=== PATIENT | female | born 1990 ===

== ENCOUNTER 2022-02-10 14:46 | Emergency (ER) | payer MEDICAID ==
[2022-02-10] MEDS ORDERED: ACETAMINOPHEN 325 MG TAB PO ONE (17:11)
[2022-02-10 18:00] LABS: Basophils % (Auto) 0.3 % (0.0-1.8); Eosinophils % (Auto) 0.4 % (0.0-4.3); Hematocrit 37.9 % (30.3-42.9); Hemoglobin 12.6 gm/dl (10.1-14.3); Lymphocytes # (Auto) 1.7 K/mm3 (1.2-5.4); Lymphocytes % (Auto) 15.5 % (13.4-35.0); Mean Corpuscular HGB Conc 33 % (30-34); Mean Corpuscular Volume 88 fl (79-97); Monocytes # (Auto) 0.7 K/mm3 (0.0-0.8); Monocytes % (Auto) 5.9 % (0.0-7.3); Platelet Count 223 K/mm3 (140-440)
[2022-02-10 18:20] LABS: Alanine Aminotransferase 15 units/L (7-56); Albumin 4.1 g/dL (3.9-5); Blood Urea Nitrogen 7 mg/dL (7-17); Calcium 8.7 mg/dL (8.4-10.2); Hemolysis Index 11
[2022-02-10 18:26] LABS: BUN/Creatinine Ratio 18
[2022-02-10 19:33] LABS: Bacteria,Urine 2+ /HPF (Negative); Mucus,Urine FEW /HPF
[2022-02-10 19:39] LABS: Color,Urine Straw (Yellow)
--- NOTE | 2022-02-10 20:25 | Emergency Department Report ---
ED Headache HPI - General Chief Complaint: OB/Uterine Contractions Stated Complaint: CHEST PAIN,HEADACHE,VOMITTING,DIZZINESS Time Seen by Provider: 02/10/22 17:09 Source: patient - History of Present Illness Initial Comments: Patient is a 32-year-old female presenting to ED with complaint of headache, ch est discomfort, dizziness and pelvic cramping. States she is roughly 18 weeks and is high risk . 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 Has an appointment with [facility] tomorrow. States her headache began 3 days ago and was gradual in onset. Chest discomfort began 2 days ago. She describes the chest pain as a sharp piercing pain. She denies any shortness of breath. She also reports decreased movement. Has not yet had an ultrasound. She denies bleeding or discharge. Allergies/Adverse Reactions: Allergies No Known Allergies Allergy (Verified 02/10/22 17:00) ED Review of Systems ROS: Stated complaint: CHEST PAIN,HEADACHE,VOMITTING,DIZZINESS Other details as noted in HPI Constitutional: denies: chills, fever Respiratory: denies: cough, shortness of breath, wheezing Cardiovascular: chest pain Gastrointestinal: denies: abdominal pain, nausea, diarrhea Genitourinary: denies: urgency, dysuria, discharge Musculoskeletal: denies: back pain, joint swelling, arthralgia Skin: denies: rash, lesions Neurological: headache Psychiatric: denies: anxiety, depression ED Past Medical Hx - Past Medical History Previous Medical History?: Yes Hx Hypertension: Yes Hx Headaches / Migraines: Yes - Surgical History Past Surgical History?: No - Social History Smoking Status: Never Smoker Substance Use Type: None ED Physical Exam - General Limitations: No Limitations General appearance: alert, in no apparent distress - Head Head exam: Present: atraumatic, normocephalic - Respiratory Respiratory exam: Present: normal lung sounds bilaterally. Absent: respiratory distress - Cardiovascular Cardiovascular Exam: Present: regular rate, normal rhythm, normal heart sounds - GI/Abdominal GI/Abdominal exam: Present: soft. Absent: distended, tenderness - Rectal Rectal exam: Present: deferred - Neurological Exam Neurological exam: Present: alert, oriented X3 - Psychiatric Psychiatric exam: Present: normal affect, normal mood - Skin Skin exam: Present: warm, dry, intact, normal color ED Course Vital Signs 02/10/22 02/10/22 16:55 18:58 Temperature 98.0 F Pulse Rate 112 H Respiratory 18 Rate Blood Pressure 149/98 [Right] O2 Sat by Pulse 98 100 Oximetry ED Medical Decision Making - Lab Data Result diagrams: 02/10/22 17:38 02/10/22 17:38 - Medical Decision Making CBC and CMP grossly unremarkable. Urinalysis is unremarkable. Specifically there is no proteinuria. Blood pressure 149/98. Patient was given Tylenol for headache. EKG normal sinus rhythm with rate of 94. Normal axis and intervals. Low suspicion for PE and ACS at this time. Her vital signs remained stable. I discussed results with patient. heart tones 145-150 with bedside Doppler. She is stable for discharge home with OB follow-up as scheduled tomorrow. Critical care attestation.: If time is entered above; I have spent that time in minutes in the direct care of this critically ill patient, excluding procedure time. ED Disposition Clinical Impression: Tension headache, Central chest pain, Decreased movement Disposition: 01 HOME / SELF CARE / HOMELESS Is pt being admited?: No Does the pt Need Aspirin: No Condition: Stable Instructions: Nonspecific Chest Pain, Adult, [id number], Tension Headache, Adult, [id number] Additional Instructions: Please follow-up with your [facility] tomorrow as scheduled. You may return if your symptoms worsen. Time of Disposition: 20:27 Print Language: PASHTO
[2022-02-10 21:57] VITALS: BP 142/109
--- NOTE | 2022-02-11 10:39 | Electrocardiograph Report ---
[facility] Test Date: 2022-02-10 Test Time: 20:15:56 Pat Name: CAREN FERRERA Department: Room: Gender: F [facility] [place]: MARSHALL : 1990 Requested By: DEJA JONES Order Number: [id number] Reading MD: Humberto Garcia Measurements Intervals [place] Rate: 94 P: 83 IA: 133 QRS: 84 QRSD: 93 T: 3 QT: 386 QTc: 484 Interpretive Statements Sinus rhythm Probable left atrial enlargement No previous ECG available for comparison Electronically Signed On 02-11-2022 10:39:03 EDT by Humberto Garcia
== END 2022-02-10 21:05 | disposition home or self-care (01) ==
LOC: ED 14:46
DX: O29.42 Spinal and epidural anesthesia induced headache during pregnancy, second trimester (principal); O99.412 Diseases of the circulatory system complicating pregnancy, second trimester; O36.8123 Decreased fetal movements, second trimester, fetus 3; Z3A.18 18 weeks gestation of pregnancy
CPT/HCPCS: 36415; 80053; 81001; 85025; 93005; 99283